=== PATIENT | male | born 1990 | race Caucasian/White ===

== ENCOUNTER 2020-03-23 17:43 | Emergency (ER) | payer SELFPAY ==
[~2020-03-23] VITALS: Ht 172.7 cm; Wt 78.0 kg
[2020-03-23 18:18] VITALS: Ht 172.7 cm; Wt 78.0 kg
[2020-03-23 18:50] VITALS: BP 136/92
== END 2020-03-23 18:50 | disposition home or self-care (01) ==
LOC: ED 17:43
DX: L08.9 Local infection of the skin and subcutaneous tissue, unspecified (principal)